=== PATIENT | male | born 1970 | race Caucasian/White ===

== ENCOUNTER → 2017-08-01 | Outpatient (CLI) | payer OTHER | LOC: RAD 13:56 | DX: M41.34 Thoracogenic scoliosis, thoracic region (principal); M47.814 Spondylosis without myelopathy or radiculopathy, thoracic region ==

== ENCOUNTER → 2020-11-12 | Outpatient (CLI) | payer OTHER | LOC: LAB 12:29 | DX: Z01.812 Encounter for preprocedural laboratory examination (principal); Z20.822 Contact with and (suspected) exposure to COVID-19 ==

== ENCOUNTER → 2020-11-17 | Day surgery (SDC) | payer OTHER | END | disposition home or self-care (01) | LOC: MSO 07:12 | DX: Z12.11 Encounter for screening for malignant neoplasm of colon (principal); F17.210 Nicotine dependence, cigarettes, uncomplicated | CPT/HCPCS: 00812; J2704; J7120 ==